=== PATIENT | female | born 1970 | race Caucasian/White ===

== ENCOUNTER 2018-02-28 23:31 | Emergency (ER) | payer OTHER ==
[~2018-02-28] VITALS: Ht 175.3 cm; Wt 140.6 kg
[2018-03-01] MEDS ORDERED: DEXAMETHASONE SOD PHOS 10 MG/1 ML VIAL IM ONE
[2018-03-01] MEDS ORDERED: FAMOTIDINE 20 MG TAB PO ONE
[2018-03-01] MEDS ORDERED: DIPHENHYDRAMINE HCL 25 MG CAP PO ONE
[2018-03-01] MEDS ORDERED: FAMOTIDINE 20 MG/2 ML VIAL IV ONE (00:02)
[2018-03-01] MEDS ORDERED: DIPHENHYDRAMINE HCL INJ 50 MG/ML VIAL ONE (00:02)
== END 2018-03-01 02:20 | disposition home or self-care (01) ==
LOC: ER 23:31
DX: L50.0 Allergic urticaria (principal); I10 Essential (primary) hypertension; E11.9 Type 2 diabetes mellitus without complications; E78.5 Hyperlipidemia, unspecified; I51.9 Heart disease, unspecified
CPT/HCPCS: 96372; 99282; J1100; J1200